=== PATIENT | female | born 1945 | race Caucasian/White ===

== ENCOUNTER 2016-10-01 18:02 | Inpatient (IN) | payer MEDICARE ==
[~2016-10-01] VITALS: Ht 165.1 cm; Wt 57.0 kg
[~2016-10-01 18:02] MED LIST: CHOL100015 PO; HYDR25TA6 PO; NABU500T PO; NITR100C PO; SERT100T5 PO
[2016-10-01] MEDS: SODIUM CHLORIDE 0.9% 1,000ML IVBOLUS ONE ×2 (18:30→18:52)
[2016-10-01] MEDS ORDERED: ONDANSETRON 2MG/ML, 2ML IVPush ONE ×2 (18:30→21:30)
[2016-10-01] MEDS ORDERED: SODIUM CHLORIDE FLUSH 10ML SYR IVF ONE (18:30)
[2016-10-01] MEDS ORDERED: ONDANSETRON 2MG/ML, 2ML ONE ×2 (18:50→21:17)
[2016-10-01 18:52] LABS: HEMOGLOBIN 14.8 g/dL (11.7-16.4)
[2016-10-01] MEDS ORDERED: MORPHINE SULFATE 4 MG/ML, 1ML ONE (18:58)
[2016-10-01 19:04] LABS: BLOOD UREA NITROGEN 33 mg/dL (7-18)
[2016-10-01] MEDS ORDERED: SODIUM CHLORIDE 0.9% 1,000ML IVBOLUS ONE ×2 (19:30→20:00)
[2016-10-01] MEDS ORDERED: HYDROmorphone 1 MG/ML, 1ML IVPush PRN (19:30)
[2016-10-01] MEDS ORDERED: HYDROmorphone 1 MG/ML, 1ML ONE (19:30)
[2016-10-01 19:53] LABS: DIFF TOTAL CELLS COUNTED 100 CELL DIFF
[2016-10-01 20:07] LABS: MONOS WITH VACUOLES 1+; VERIFY COUNTS? YES
[2016-10-01] MEDS ORDERED: SODIUM CHLORIDE 0.9% 1,000 ML IV ONE (21:15)
[2016-10-01] MEDS ORDERED: POTASSIUM CHLORIDE 20 MEQ in SODIUM CHLORIDE 0.9% 1,000 ML IV ONE (21:16)
[2016-10-01] MEDS ORDERED: FAMOTIDINE 20 MG/2 ML ONE (21:17)
[2016-10-01] MEDS ORDERED: SODIUM CHLORIDE FLUSH 10ML SYR IVF PRN (21:30)
[2016-10-01] MEDS ORDERED: FAMOTIDINE 20 MG/2 ML IVP ONE (21:30)
[2016-10-01] MEDS ORDERED: NS + 20MEQ KCL 1,000 ML IV ONE (21:31)
[2016-10-01 22:35] VITALS: BP 109/66
[2016-10-01 22:38] VITALS: BP 109/66
[2016-10-01] MEDS ORDERED: NS + 20MEQ KCL 1,000 ML IV SCH (23:40)
[2016-10-01] MEDS ORDERED: SODIUM CHLORIDE 0.9% 1,000 ML IV SCH (23:40)
[2016-10-02] MEDS ORDERED: PROMETHAZINE 25 MG/ML, 1ML IM PRN
[2016-10-02] MEDS ORDERED: HYDROcodone/APAP 5/325 TABLET PO PRN
[2016-10-02] MEDS ORDERED: ACETAMINOPHEN 325 MG TABLET PO PRN
[2016-10-02] MEDS ORDERED: BISACODYL 10 MG SUPP PR PRN
[2016-10-02] MEDS: ONDANSETRON 2MG/ML, 2ML IVP PRN ×2 (00:23→09:13)
[2016-10-02] MEDS ORDERED: POTASSIUM CHLORIDE 20 MEQ TAB.ER.PRT PO ONE (00:30)
[2016-10-02 01:30] LABS: IS PT STATUS REG ER OR PRE ER? NO
[2016-10-02 02:00] VITALS: BP 122/73
[2016-10-02] MEDS ORDERED: MAGNESIUM SULFATE PMX 4GM/100M 100 ML IV ONE (02:30)
[2016-10-02 04:47] LABS: HEMOGLOBIN 12.9 g/dL (11.7-16.4)
[2016-10-02] MEDS: APAP/CODEINE 300/30MG TABLET PO PRN (04:56)
[2016-10-02 04:57] LABS: BLOOD UREA NITROGEN 25 mg/dL (7-18)
[2016-10-02 05:00] LABS: ASPARTATE AMINO TRANSFERASE 27 U/L (15-37)
[2016-10-02] MEDS ORDERED: LORazepam 1MG TABLET PO ONE (05:00)
[2016-10-02 05:01] LABS: IS PT STATUS REG ER OR PRE ER? NO
[2016-10-02 05:36] LABS: DIFF TOTAL CELLS COUNTED 100 CELL DIFF
[2016-10-02 05:40] LABS: VERIFY COUNTS? YES
[2016-10-02 07:51] VITALS: BP 125/71
[2016-10-02] MEDS ORDERED: HYDROCHLOROTHIAZIDE 25 MG TABLET PO SCH (09:00)
[2016-10-02] MEDS ORDERED: NABUMETONE 500 MG TABLET PO SCH (09:00)
[2016-10-02] MEDS: HEPARIN 5,000 UNITS/ML, 1ML SQ SCH ×3 (09:12→16:00)
[2016-10-02] MEDS: FAMOTIDINE 20 MG/2 ML IV SCH ×2 (09:13→21:05)
[2016-10-02] MEDS: SERTRALINE 100MG TABLET PO SCH (09:13)
[2016-10-02] MEDS: CHOLESTYRAMINE LIGHT 4GM PACKET PO SCH (10:30)
[2016-10-02] MEDS ORDERED: APAP/CODEINE 24/2.4MG/ML ELIXIR PO PRN (10:30)
[2016-10-02] MEDS: LACTOBACILLUS CHEW TABLET PO SCH ×3 (11:00→21:05)
[2016-10-02 13:39] VITALS: BP 144/74
[2016-10-02] MEDS ORDERED: LORazepam 2 MG/ML, 1ML IV PRN (18:30)
[2016-10-02] MEDS ORDERED: LORazepam 0.5MG TABLET PO PRN (18:30)
[2016-10-02 20:10] VITALS: BP 131/75
[2016-10-02] MEDS: GRANISETRON 1 MG/ML IVPush SCH (21:04)
[2016-10-03] MEDS: CHOLESTYRAMINE LIGHT 4GM PACKET PO SCH ×3 (00:03→21:44)
[2016-10-03] MEDS: APAP/CODEINE 300/30MG TABLET PO PRN ×2 (00:03→18:14)
[2016-10-03] MEDS: HEPARIN 5,000 UNITS/ML, 1ML SQ SCH ×3 (00:04→16:00)
[2016-10-03 01:32] VITALS: BP 134/75
[2016-10-03 05:01] LABS: HEMOGLOBIN 10.8 g/dL (11.7-16.4)
[2016-10-03 05:21] LABS: BLOOD UREA NITROGEN 15 mg/dL (7-18)
[2016-10-03 05:35] LABS: DIFF TOTAL CELLS COUNTED 100 CELL DIFF
[2016-10-03 05:38] LABS: VERIFY COUNTS? YES
[2016-10-03] MEDS: LACTOBACILLUS CHEW TABLET PO SCH ×4 (06:42→21:44)
[2016-10-03 07:18] VITALS: BP 116/56
[2016-10-03] MEDS: GRANISETRON 1 MG/ML IVPush SCH ×2 (08:43→21:43)
[2016-10-03] MEDS: SERTRALINE 100MG TABLET PO SCH (08:44)
[2016-10-03] MEDS: FAMOTIDINE 20 MG/2 ML IV SCH ×2 (08:44→21:43)
[2016-10-03] MEDS ORDERED: NEUTRA PHOS K 250 MG TABLET PO ONE (13:00)
[2016-10-03 14:10] VITALS: BP 161/78
[2016-10-03] MEDS ORDERED: CHOL239. PO (15:02)
[2016-10-03] MEDS ORDERED: ACET325T14 PO (15:02)
[2016-10-03] MEDS ORDERED: ONDA4TAB10 PO (15:02)
[2016-10-03] MEDS ORDERED: ACID1TAB7 PO (15:02)
[2016-10-03] MEDS ORDERED: ACET118E PO (15:02)
[2016-10-03 18:28] VITALS: BP 156/81
[2016-10-04] MEDS: HEPARIN 5,000 UNITS/ML, 1ML SQ SCH ×2 (00:34→09:01)
[2016-10-04 02:00] VITALS: BP 139/75
[2016-10-04] MEDS: APAP/CODEINE 300/30MG TABLET PO PRN (04:57)
[2016-10-04] MEDS: LACTOBACILLUS CHEW TABLET PO SCH ×2 (06:00→12:42)
[2016-10-04 07:30] VITALS: BP 104/61
[2016-10-04] MEDS: FAMOTIDINE 20 MG/2 ML IV SCH (08:50)
[2016-10-04] MEDS: CHOLESTYRAMINE LIGHT 4GM PACKET PO SCH (09:00)
[2016-10-04] MEDS: GRANISETRON 1 MG/ML IVPush SCH (09:00)
[2016-10-04] MEDS: SERTRALINE 100MG TABLET PO SCH (09:01)
[2016-10-04 10:06] LABS: BLOOD UREA NITROGEN 8 mg/dL (7-18)
[2016-10-04] MEDS ORDERED: NEUTRA PHOS K 250 MG TABLET PO SCH (11:30)
[2016-10-04] MEDS ORDERED: MAGNESIUM SULFATE PMX 4GM/100M 100 ML IV ONE (11:30)
[2016-10-04] MEDS ORDERED: POTASSIUM CHLORIDE 20 MEQ TAB.ER.PRT PO SCH (11:30)
[2016-10-04 13:11] VITALS: BP 147/73
[2016-10-04] MEDS ORDERED: FLU VACCINE PER PHARMACY IM ONE (16:30)
[2016-10-04] MEDS ORDERED: PNEUMOCOCCAL 23 VACCINE IM-VACC ONE (16:30)
[2016-10-04] MEDS ORDERED: FLU VACC QS2016-17 (36MOS+)UP/PF 0.5 ML IM-VACC ONE (17:00)
[2016-10-05] MEDS ORDERED: FAMOTIDINE 20 MG/2 ML IV SCH (09:00)
== END 2016-10-04 18:04 | disposition home or self-care (01) | DRG 683 ==
LOC: ED 21:00 → EDIP 21:16 → 4WST 22:20 → 3NW 10-02 15:32
PROVIDERS: ADMIT Internal Medicine; ATTEND Internal Medicine
DX: N17.0 Acute kidney failure with tubular necrosis (principal); E87.1 Hypo-osmolality and hyponatremia; E44.0 Moderate protein-calorie malnutrition; R11.2 Nausea with vomiting, unspecified; E86.0 Dehydration; E78.5 Hyperlipidemia, unspecified; E83.42 Hypomagnesemia; E87.6 Hypokalemia; R19.7 Diarrhea, unspecified; T45.1X5A Adverse effect of antineoplastic and immunosuppressive drugs, initial encounter; C50.912 Malignant neoplasm of unspecified site of left female breast; D64.9 Anemia, unspecified; D72.829 Elevated white blood cell count, unspecified; E83.39 Other disorders of phosphorus metabolism; F32.9 Major depressive disorder, single episode, unspecified; R73.9 Hyperglycemia, unspecified; G43.909 Migraine, unspecified, not intractable, without status migrainosus; I10 Essential (primary) hypertension; K58.0 Irritable bowel syndrome with diarrhea; K80.20 Calculus of gallbladder without cholecystitis without obstruction; M10.9 Gout, unspecified; M79.7 Fibromyalgia; Z80.3 Family history of malignant neoplasm of breast; Z17.0 Estrogen receptor positive status [ER+]; Z68.20 Body mass index [BMI] 20.0-20.9, adult; Z82.49 Family history of ischemic heart disease and other diseases of the circulatory system; Z85.3 Personal history of malignant neoplasm of breast; Z87.891 Personal history of nicotine dependence; Z90.49 Acquired absence of other specified parts of digestive tract; Z98.51 Tubal ligation status; Z90.711 Acquired absence of uterus with remaining cervical stump; Z88.5 Allergy status to narcotic agent; Z88.0 Allergy status to penicillin
CPT/HCPCS: 36415; 74176; 80048; 80053; 81003; 82040; 83036; 83605; 83735; 84100; 84443; 84484; 85025; 87046; 87324; 87328; 87329; 87899; 96361; 96365; 96375; 96376; J1170; J1644; J2405; J2550; J3480; J1626; J3475; J7030; S0028

== ENCOUNTER 2016-10-08 12:52 | Inpatient (IN) | payer MEDICARE ==
[~2016-10-08] VITALS: Ht 165.1 cm; Wt 58.9 kg
[~2016-10-08 12:52] MED LIST changes: +ACET118E PO; +ACET325T14 PO; +ACID1TAB7 PO; +CHOL239. PO; +ONDA4TAB10 PO
[2016-10-08] MEDS ORDERED: SODIUM CHLORIDE 0.9% 1,000 ML IV ONE (13:16)
[2016-10-08] MEDS ORDERED: ONDANSETRON 2MG/ML, 2ML IVPush ONE (13:30)
[2016-10-08] MEDS ORDERED: SODIUM CHLORIDE FLUSH 10ML SYR IVF ONE (13:30)
[2016-10-08 14:28] LABS: ASPARTATE AMINO TRANSFERASE 17 U/L (15-37); BLOOD UREA NITROGEN 21 mg/dL (7-18)
[2016-10-08 15:07] LABS: DIFF TOTAL CELLS COUNTED 100 CELL DIFF
[2016-10-08 15:08] LABS: VERIFY COUNTS? YES
[2016-10-08] MEDS ORDERED: CEFOTETAN PMX 1GM/50ML 50 ML IV ONE (16:00)
[2016-10-08] MEDS ORDERED: CEFOTETAN PMX 1GM/50ML 50 ML ONE (16:02)
[2016-10-08] MEDS ORDERED: HYDROmorphone 2 MG/ML, 1ML IV PRN (17:00)
[2016-10-08] MEDS ORDERED: POTASSIUM PHOSPHATE 44 MEQ in SODIUM CHLORIDE 0.9% 500 ML IV ONE (17:00)
[2016-10-08] MEDS ORDERED: ENALAPRILAT 1.25 MG/ML, 2ML IVPush PRN (17:00)
[2016-10-08] MEDS ORDERED: TEMAZEPAM 15 MG CAPSULE PO PRN (17:00)
[2016-10-08] MEDS ORDERED: ONDANSETRON 2MG/ML, 2ML IVP PRN (17:00)
[2016-10-08] MEDS: HEPARIN 5,000 UNITS/ML, 1ML SQ SCH (17:00)
[2016-10-08] MEDS ORDERED: ACETAMINOPHEN 325 MG TABLET PO PRN (17:00)
[2016-10-08] MEDS ORDERED: MAGNESIUM SULFATE PMX 4GM/100M 100 ML IV ONE (17:00)
[2016-10-08] MEDS ORDERED: MIDAZOLAM 1 MG/ML, 2ML ONE (19:47)
[2016-10-08] MEDS ORDERED: FENTANYL PF 250 MCG/5ML ONE (19:48)
[2016-10-08] MEDS ORDERED: GLYCOPYRROLATE 0.2MG/1ML ONE (20:17)
[2016-10-08] MEDS ORDERED: ONDANSETRON 2MG/ML, 2ML ONE (20:17)
[2016-10-08] MEDS ORDERED: NEOSTIGMINE 1 MG/ML, 10ML ONE (20:17)
[2016-10-08] MEDS ORDERED: ROCURONIUM 10 MG/ML ONE (20:17)
[2016-10-08] MEDS ORDERED: PROPOFOL 10 MG/ML, 20ML ONE (20:17)
[2016-10-08] MEDS ORDERED: SUCCINYLCHOLINE 20 MG/ML, 10ML ONE (20:17)
[2016-10-08] MEDS ORDERED: DEXAMETHASONE 4 MG/ML, 1ML ONE (20:17)
[2016-10-08] MEDS ORDERED: LABETALOL 5MG/ML ONE (20:17)
[2016-10-08] MEDS ORDERED: BUPIVACAINE/PF-EPI 0.5% 1:200K IM ONE (20:29)
[2016-10-08] MEDS ORDERED: OXYcodone 5 MG/5 ML ORAL.SOL UDC ONE (21:23)
[2016-10-08] MEDS ORDERED: MIDAZOLAM 1 MG/ML, 2ML IV PRN (21:30)
[2016-10-08] MEDS ORDERED: HYDROmorphone 1 MG/ML, 1ML IV PRN (21:30)
[2016-10-08] MEDS ORDERED: OXYcodone 5 MG/5 ML ORAL.SOL UDC PO PRN (21:30)
[2016-10-08] MEDS ORDERED: ONDANSETRON 2MG/ML, 2ML IVPush PRN (21:30)
[2016-10-08] MEDS ORDERED: FENTANYL PF 100 MCG/2ML IV PRN (21:30)
[2016-10-08] MEDS ORDERED: ALBUTEROL/IPRATROPIUM 2.5MG/0.5MG, 3 ML NPPB PRN (21:30)
[2016-10-08] MEDS ORDERED: EPHEDRINE 50 MG/ML, 1ML IVPush PRN (21:30)
[2016-10-08] MEDS ORDERED: LABETALOL 5MG/ML, 20ML IV PRN (21:30)
[2016-10-08] MEDS: SODIUM CHLORIDE 0.9% 1,000 ML IV SCH (22:27)
[2016-10-08 22:35] VITALS: BP 142/72
[2016-10-08] MEDS: ERTAPENEM 1 GM in SODIUM CHLORIDE 0.9% 50 ML IV SCH (23:04)
[2016-10-09] MEDS: HEPARIN 5,000 UNITS/ML, 1ML SQ SCH ×3 (00:44→16:55)
[2016-10-09 00:45] VITALS: BP 117/61
[2016-10-09] MEDS: HYDROcodone/APAP 5/325 TABLET PO PRN ×3 (02:45→13:55)
[2016-10-09] MEDS ORDERED: OXYcodone/APAP 5/325MG TABLET PO PRN (03:00)
[2016-10-09 03:11] LABS: HEMOGLOBIN 9.5 g/dL (11.7-16.4)
[2016-10-09 03:21] LABS: BLOOD UREA NITROGEN 15 mg/dL (7-18)
[2016-10-09 03:24] LABS: ASPARTATE AMINO TRANSFERASE 26 U/L (15-37); DIFF TOTAL CELLS COUNTED 100 CELL DIFF
[2016-10-09 03:26] LABS: VERIFY COUNTS? YES
[2016-10-09] MEDS: SODIUM CHLORIDE 0.9% 1,000 ML IV SCH (06:14)
[2016-10-09 07:29] VITALS: BP 118/62
[2016-10-09] MEDS ORDERED: PANTOPRAZOLE 40 MG IV IVP SCH (07:30)
[2016-10-09] MEDS ORDERED: SERTRALINE 100MG TABLET PO SCH (09:00)
[2016-10-09] MEDS ORDERED: CIPR500T3 PO (11:05)
[2016-10-09] MEDS ORDERED: POTASSIUM CHLORIDE 40 MEQ in SODIUM CHLORIDE 0.9% 500 ML IV ONE (11:30)
[2016-10-09] MEDS ORDERED: MAGN400T26 PO (11:34)
[2016-10-09 13:30] VITALS: BP 130/65
[2016-10-09] MEDS: ERTAPENEM 1 GM in SODIUM CHLORIDE 0.9% 50 ML IV SCH (16:55)
[2016-10-09] MEDS ORDERED: ONDA4TAB7 PO (17:53)
[2016-10-09] MEDS ORDERED: SODIUM CHLORIDE FLUSH 10ML SYR IVF SCH (21:00)
== END 2016-10-09 18:09 | disposition home or self-care (01) | DRG 417 ==
LOC: ED 14:56 → EDIP 15:40 → 3NW 22:03
PROVIDERS: ADMIT Internal Medicine; ATTEND Internal Medicine
PROC: 0FT44ZZ Resection of Gallbladder, Percutaneous Endoscopic Approach (ICD-10-PCS; principal; 2016-10-08 21:30)
DX: K80.00 Calculus of gallbladder with acute cholecystitis without obstruction (principal); E43 Unspecified severe protein-calorie malnutrition; K58.9 Irritable bowel syndrome, unspecified; I10 Essential (primary) hypertension; C50.919 Malignant neoplasm of unspecified site of unspecified female breast; E83.42 Hypomagnesemia; E87.6 Hypokalemia; E78.5 Hyperlipidemia, unspecified; M10.9 Gout, unspecified; M79.7 Fibromyalgia; F32.9 Major depressive disorder, single episode, unspecified; G43.909 Migraine, unspecified, not intractable, without status migrainosus; Z85.3 Personal history of malignant neoplasm of breast; Z87.891 Personal history of nicotine dependence; Z90.710 Acquired absence of both cervix and uterus; Z90.49 Acquired absence of other specified parts of digestive tract; Z88.5 Allergy status to narcotic agent; Z88.0 Allergy status to penicillin; Z68.21 Body mass index [BMI] 21.0-21.9, adult; Z66 Do not resuscitate
CPT/HCPCS: 36415; 76700; 78226; 80053; 83690; 83735; 84100; 84132; 85025; 85610; 87040; 88304; 93005; 96374; J1100; J1335; J1644; J2250; J2405; J2704; J2710; J3010; J3480; J3490; A9537; C9113; C9898; J0330; J3475; J7030; J7040; S0074

== ENCOUNTER 2016-10-29 14:32 | Inpatient (IN) | payer MEDICARE ==
[~2016-10-29] VITALS: Ht 165.1 cm; Wt 63.4 kg
[~2016-10-29 14:32] MED LIST changes: +CIPR500T3 PO; +MAGN400T26 PO; +ONDA4TAB7 PO
[2016-10-29] MEDS ORDERED: ONDANSETRON 2MG/ML, 2ML ONE (15:15)
[2016-10-29] MEDS ORDERED: SODIUM CHLORIDE 0.9% 1,000 ML IV ONE (15:16)
[2016-10-29] MEDS ORDERED: FAMOTIDINE 20 MG/2 ML IVP ONE (15:30)
[2016-10-29] MEDS ORDERED: SODIUM CHLORIDE 0.9% 1,000ML IVBOLUS ONE ×2 (15:30→16:30)
[2016-10-29] MEDS ORDERED: ONDANSETRON 2MG/ML, 2ML IVPush ONE (15:30)
[2016-10-29] MEDS ORDERED: SODIUM CHLORIDE FLUSH 10ML SYR IVF ONE (15:30)
[2016-10-29] MEDS ORDERED: HYDROmorphone 1 MG/ML, 1ML IVPush PRN (15:30)
[2016-10-29] MEDS ORDERED: HYDROmorphone 1 MG/ML, 1ML ONE (15:54)
[2016-10-29] MEDS ORDERED: FAMOTIDINE 20 MG/2 ML ONE (15:55)
[2016-10-29 16:02] LABS: BLOOD UREA NITROGEN 27 mg/dL (7-18)
[2016-10-29 16:06] LABS: ASPARTATE AMINO TRANSFERASE 16 U/L (15-37)
[2016-10-29 16:39] LABS: DIFF TOTAL CELLS COUNTED 100 CELL DIFF
[2016-10-29 16:51] LABS: VERIFY COUNTS? YES
[2016-10-29] MEDS ORDERED: LORA0.5T PO (18:21)
[2016-10-29] MEDS ORDERED: HYDR-3138 PO (18:21)
[2016-10-29] MEDS ORDERED: CHLO1CAP PO (18:21)
[2016-10-29] MEDS ORDERED: DEXA4TAB PO (18:21)
[2016-10-29] MEDS ORDERED: ACET1TAB64 PO (18:21)
[2016-10-29] MEDS ORDERED: CEFTRIAXONE PMX 1GM/50ML 50 ML ONE (18:52)
[2016-10-29] MEDS ORDERED: CEFTRIAXONE PMX 1GM/50ML 50 ML IV ONE (19:00)
[2016-10-29] MEDS ORDERED: METRONIDAZOLE PMX 500MG/100ML 100 ML IV ONE (19:00)
[2016-10-29] MEDS ORDERED: ONDANSETRON 4 MG TABLET PO PRN (20:30)
[2016-10-29] MEDS ORDERED: CHOLESTYRAMINE LIGHT 4GM PACKET PO PRN (20:30)
[2016-10-29] MEDS: HYDROcodone/APAP 5/325 TABLET PO SCH (20:30)
[2016-10-29 20:44] VITALS: BP 133/64
[2016-10-29] MEDS: LORazepam 0.5MG TABLET PO SCH ×2 (21:00→22:41)
[2016-10-29] MEDS ORDERED: VANCOMYCIN PMX 1GM/200ML 200 ML IV SCH (21:04)
[2016-10-29] MEDS ORDERED: PHARMACOKINETIC CONSULTATION MC ONE (21:30)
[2016-10-29] MEDS ORDERED: PHARMACOKINETIC MONITORING MC PRN (21:30)
[2016-10-29] MEDS: CEFTAZIDIME PMX 2 GM/50ML 50 ML IV SCH (21:32)
[2016-10-29] MEDS: SODIUM CHLORIDE 0.9% 1,000 ML IV SCH (21:33)
[2016-10-29] MEDS: HEPARIN 5,000 UNITS/ML, 1ML SQ SCH (22:39)
[2016-10-29] MEDS: LACTOBACILLUS CHEW TABLET PO SCH (22:40)
[2016-10-29] MEDS: DEXAMETHASONE 4 MG TABLET PO SCH (22:41)
[2016-10-29] MEDS: NABUMETONE 500 MG TABLET PO SCH (22:41)
[2016-10-29 23:00] VITALS: BP 133/64
[2016-10-29] MEDS: ACETAMINOPHEN 325 MG TABLET PO PRN (23:10)
[2016-10-30] VITALS (7 sets, daily range): BP systolic 94–133; BP diastolic 53–64
[2016-10-30] MEDS: HYDROcodone/APAP 5/325 TABLET PO SCH ×2 (02:30→08:38)
[2016-10-30 04:02] LABS: BLOOD UREA NITROGEN 19 mg/dL (7-18)
[2016-10-30 04:21] LABS: DIFF TOTAL CELLS COUNTED 100 CELL DIFF
[2016-10-30 04:25] LABS: VERIFY COUNTS? YES
[2016-10-30] MEDS: HEPARIN 5,000 UNITS/ML, 1ML SQ SCH ×3 (06:38→21:17)
[2016-10-30] MEDS: SODIUM CHLORIDE 0.9% 1,000 ML IV SCH ×2 (06:39→12:28)
[2016-10-30] MEDS: LACTOBACILLUS CHEW TABLET PO SCH ×4 (06:39→20:20)
[2016-10-30] MEDS: INSULIN ASPART 100 UNITS/ML, PEN SQ-INSULIN SCH ×4 (07:00→20:26)
[2016-10-30] MEDS: LORazepam 0.5MG TABLET PO SCH (08:23)
[2016-10-30] MEDS: SERTRALINE 100MG TABLET PO SCH (08:38)
[2016-10-30] MEDS: DEXAMETHASONE 4 MG TABLET PO SCH ×2 (08:38→20:20)
[2016-10-30] MEDS: NABUMETONE 500 MG TABLET PO SCH (08:39)
[2016-10-30] MEDS: CEFTAZIDIME PMX 2 GM/50ML 50 ML IV SCH ×2 (08:40→21:16)
[2016-10-30] MEDS ORDERED: ONDANSETRON 2MG/ML, 2ML ONE (08:58)
[2016-10-30] MEDS ORDERED: SODIUM CHLORIDE 0.9% 1,000ML IVBOLUS ONE (09:00)
[2016-10-30] MEDS: ONDANSETRON 2MG/ML, 2ML IVPush PRN (09:00)
[2016-10-30] MEDS ORDERED: PHARMACOKINETIC MONITORING MC PRN (10:30)
[2016-10-30] MEDS ORDERED: VANCOMYCIN PER PHARMACY MC PRN (10:30)
[2016-10-30] MEDS: METRONIDAZOLE PMX 500MG/100ML 100 ML IV SCH ×2 (12:28→20:20)
[2016-10-30] MEDS: VANCOMYCIN 50 MG/ML ORAL SUSP PO SCH ×3 (12:28→22:49)
[2016-10-30] MEDS: HYDROcodone/APAP 5/325 TABLET PO PRN (12:28)
[2016-10-30] MEDS ORDERED: VANCOMYCIN PMX 1GM/200ML 200 ML IV SCH ×2 (22:00)
[2016-10-31] MEDS: METRONIDAZOLE PMX 500MG/100ML 100 ML IV SCH ×3 (02:18→19:16)
[2016-10-31] MEDS: SODIUM CHLORIDE 0.9% 1,000 ML IV SCH ×2 (02:18→19:16)
[2016-10-31 02:20] VITALS: BP 116/64
[2016-10-31] MEDS: VANCOMYCIN 50 MG/ML ORAL SUSP PO SCH ×4 (03:34→21:46)
[2016-10-31 04:00] LABS: ASPARTATE AMINO TRANSFERASE 9 U/L (15-37); BLOOD UREA NITROGEN 16 mg/dL (7-18)
[2016-10-31] MEDS: LACTOBACILLUS CHEW TABLET PO SCH ×4 (05:11→20:49)
[2016-10-31] MEDS: HYDROcodone/APAP 5/325 TABLET PO PRN ×2 (05:11→15:10)
[2016-10-31] MEDS: HEPARIN 5,000 UNITS/ML, 1ML SQ SCH ×3 (05:11→21:47)
[2016-10-31] MEDS: INSULIN ASPART 100 UNITS/ML, PEN SQ-INSULIN SCH ×4 (07:00→21:46)
[2016-10-31 07:11] VITALS: BP 120/67
[2016-10-31] MEDS: CEFTAZIDIME PMX 2 GM/50ML 50 ML IV SCH ×2 (09:46→20:48)
[2016-10-31] MEDS: SERTRALINE 100MG TABLET PO SCH (09:47)
[2016-10-31] MEDS: DEXAMETHASONE 4 MG TABLET PO SCH ×2 (09:47→20:49)
[2016-10-31 13:34] VITALS: BP 134/71
[2016-10-31 18:49] VITALS: BP 140/64
[2016-11-01 02:24] VITALS: BP 114/57
[2016-11-01] MEDS: LACTOBACILLUS CHEW TABLET PO SCH ×4 (04:48→20:32)
[2016-11-01] MEDS: HEPARIN 5,000 UNITS/ML, 1ML SQ SCH ×3 (04:48→22:54)
[2016-11-01] MEDS: VANCOMYCIN 50 MG/ML ORAL SUSP PO SCH ×4 (04:48→22:54)
[2016-11-01] MEDS: SODIUM CHLORIDE 0.9% 1,000 ML IV SCH (04:49)
[2016-11-01] MEDS: METRONIDAZOLE PMX 500MG/100ML 100 ML IV SCH ×3 (04:49→20:32)
[2016-11-01 05:27] LABS: BLOOD UREA NITROGEN 20 mg/dL (7-18)
[2016-11-01] MEDS: INSULIN ASPART 100 UNITS/ML, PEN SQ-INSULIN SCH ×4 (07:00→20:25)
[2016-11-01 07:19] VITALS: BP 143/80
[2016-11-01 07:45] VITALS: BP 154/70
[2016-11-01] MEDS: SERTRALINE 100MG TABLET PO SCH (08:00)
[2016-11-01] MEDS: HYDROcodone/APAP 5/325 TABLET PO PRN (08:00)
[2016-11-01] MEDS: DEXAMETHASONE 4 MG TABLET PO SCH ×2 (08:00→20:32)
[2016-11-01 13:14] VITALS: BP 148/80
[2016-11-01] MEDS: ACETAMINOPHEN 325 MG TABLET PO PRN (18:05)
[2016-11-01 19:27] VITALS: BP 158/71
[2016-11-01] MEDS: LORazepam 0.5MG TABLET PO PRN (20:32)
[2016-11-02 02:21] VITALS: BP 147/81
[2016-11-02] MEDS: LORazepam 0.5MG TABLET PO PRN ×3 (02:26→20:47)
[2016-11-02 02:54] LABS: BLOOD UREA NITROGEN 22 mg/dL (7-18)
[2016-11-02] MEDS: HEPARIN 5,000 UNITS/ML, 1ML SQ SCH ×3 (05:04→22:14)
[2016-11-02] MEDS: VANCOMYCIN 50 MG/ML ORAL SUSP PO SCH ×4 (05:04→20:49)
[2016-11-02] MEDS: LACTOBACILLUS CHEW TABLET PO SCH ×4 (05:05→20:47)
[2016-11-02] MEDS: METRONIDAZOLE PMX 500MG/100ML 100 ML IV SCH (05:05)
[2016-11-02] MEDS: INSULIN ASPART 100 UNITS/ML, PEN SQ-INSULIN SCH ×4 (07:00→20:44)
[2016-11-02 08:18] VITALS: BP 152/81
[2016-11-02] MEDS: DEXAMETHASONE 4 MG TABLET PO SCH ×2 (09:20→20:47)
[2016-11-02] MEDS: SERTRALINE 100MG TABLET PO SCH (09:20)
[2016-11-02 14:00] VITALS: BP 155/78
[2016-11-02] MEDS: HYDROcodone/APAP 5/325 TABLET PO PRN (15:19)
[2016-11-02 21:47] VITALS: BP 142/74
[2016-11-03] MEDS: VANCOMYCIN 50 MG/ML ORAL SUSP PO SCH ×4 (02:59→21:16)
[2016-11-03 03:00] VITALS: BP 156/72
[2016-11-03 03:30] LABS: BLOOD UREA NITROGEN 24 mg/dL (7-18)
[2016-11-03] MEDS: LACTOBACILLUS CHEW TABLET PO SCH ×4 (05:54→19:32)
[2016-11-03] MEDS: HEPARIN 5,000 UNITS/ML, 1ML SQ SCH ×3 (05:54→21:16)
[2016-11-03] MEDS: LORazepam 0.5MG TABLET PO PRN ×2 (05:54→19:32)
[2016-11-03 07:00] VITALS: BP 130/65
[2016-11-03] MEDS: INSULIN ASPART 100 UNITS/ML, PEN SQ-INSULIN SCH ×4 (07:00→19:32)
[2016-11-03] MEDS: DEXAMETHASONE 4 MG TABLET PO SCH ×2 (09:38→19:32)
[2016-11-03] MEDS: SERTRALINE 100MG TABLET PO SCH (09:38)
[2016-11-03] MEDS: HYDROcodone/APAP 5/325 TABLET PO PRN (11:08)
[2016-11-03 13:54] VITALS: BP 134/70
[2016-11-03 20:13] VITALS: BP 138/58
[2016-11-03] MEDS: ONDANSETRON 2MG/ML, 2ML IVPush PRN (21:16)
[2016-11-04 02:55] VITALS: BP 132/66
[2016-11-04] MEDS: HEPARIN 5,000 UNITS/ML, 1ML SQ SCH (04:42)
[2016-11-04] MEDS: VANCOMYCIN 50 MG/ML ORAL SUSP PO SCH ×3 (04:43→14:28)
[2016-11-04] MEDS: LACTOBACILLUS CHEW TABLET PO SCH ×2 (04:43→11:40)
[2016-11-04] MEDS: ONDANSETRON 2MG/ML, 2ML IVPush PRN ×2 (04:43→09:50)
[2016-11-04] MEDS: HYDROcodone/APAP 5/325 TABLET PO PRN ×2 (05:14→14:30)
[2016-11-04 05:16] LABS: BLOOD UREA NITROGEN 24 mg/dL (7-18)
[2016-11-04] MEDS: INSULIN ASPART 100 UNITS/ML, PEN SQ-INSULIN SCH ×2 (07:00→11:00)
[2016-11-04 07:38] VITALS: BP 150/74
[2016-11-04] MEDS: DEXAMETHASONE 4 MG TABLET PO SCH (09:40)
[2016-11-04] MEDS: SERTRALINE 100MG TABLET PO SCH (09:40)
[2016-11-04 13:20] VITALS: BP 149/78
[2016-11-04] MEDS ORDERED: VANC1VIA3 PO (14:23)
[2016-11-04] MEDS ORDERED: SUCR1ORA2 PO (15:04)
[2016-11-04] MEDS ORDERED: SUCRALFATE 1 GM/10 ML UDC PO SCH (16:00)
== END 2016-11-04 19:00 | disposition home or self-care (01) | DRG 871 ==
LOC: ED 15:32 → EDIP 18:17 → 3NW 19:50
PROVIDERS: ADMIT Internal Medicine; ATTEND Internal Medicine
PROC: 0T9B70Z Drainage of Bladder with Drainage Device, Via Natural or Artificial Opening (ICD-10-PCS; principal; 2016-10-29)
DX: A41.9 Sepsis, unspecified organism (principal); N17.0 Acute kidney failure with tubular necrosis; A04.7 Enterocolitis due to Clostridium difficile; E87.2 Acidosis; E87.1 Hypo-osmolality and hyponatremia; D64.9 Anemia, unspecified; D89.9 Disorder involving the immune mechanism, unspecified; E86.0 Dehydration; E86.1 Hypovolemia; I10 Essential (primary) hypertension; D70.9 Neutropenia, unspecified; R50.81 Fever presenting with conditions classified elsewhere; C50.912 Malignant neoplasm of unspecified site of left female breast; F41.8 Other specified anxiety disorders; R73.9 Hyperglycemia, unspecified; T38.0X5A Adverse effect of glucocorticoids and synthetic analogues, initial encounter; Z66 Do not resuscitate; Z85.3 Personal history of malignant neoplasm of breast; Z87.891 Personal history of nicotine dependence; Z90.49 Acquired absence of other specified parts of digestive tract; Z88.0 Allergy status to penicillin; Z88.5 Allergy status to narcotic agent
CPT/HCPCS: 36415; 70450; 71010; 74177; 74181; 80048; 80053; 81003; 82962; 83605; 83690; 84145; 85014; 85018; 85025; 85610; 87040; 87046; 87324; 87493; 89055; 93005; 96361; 96365; 96375; J0696; J1170; J1644; J1815; J2405; J3370; J0713; J7030; S0028

== ENCOUNTER → 2017-08-08 | Outpatient (CLI) | payer MEDICARE ==
[~2017-08-08] MED LIST changes: -ACET118E PO; +ACET1TAB64 PO; +ACET473E4 PO; +CHLO1CAP PO; +DEXA4TAB PO; +HYDR-3237 PO; +LORA0.5T PO; +SUCR1ORA5 PO; +VANC1VIA3 PO
[2017-08-08 17:21] LABS: HCT (SEDRATE) 34.4 % (34.6-47.8)
== END | disposition home or self-care (01) ==
LOC: RAD 15:24
PROVIDERS: ATTEND Dermatology
DX: M25.472 Effusion, left ankle (principal); M77.32 Calcaneal spur, left foot; C50.812 Malignant neoplasm of overlapping sites of left female breast
CPT/HCPCS: 36415; 85651; 86141